=== PATIENT | female | born 1960 | race American Indian/Alaskan Native ===

== ENCOUNTER 2021-10-15 23:09 | Emergency (ER) | payer OTHER ==
[2021-10-15 23:14] VITALS: BP 149/89
[2021-10-16] MEDS ORDERED: ACETAMINOPHEN 500 MG TAB PO ONE (03:10)
[2021-10-16] MEDS ORDERED: MUPIROCIN 2% OINT 22 GM TP ONE (03:10)
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
== END 2021-10-16 03:53 | disposition home or self-care (01) ==
LOC: ED 23:09
DX: T20.27XA Burn of second degree of neck, initial encounter (principal)
CPT/HCPCS: 99282